=== PATIENT | female | born 1990 | race Native Hawaiian/Other Pacific Islander ===

== ENCOUNTER 2018-03-12 06:19 | Emergency (ER) | payer OTHER ==
[2018-03-12] MEDS ORDERED: Albuterol-Ipratrop 3 mg / 0.5 (3 ml) UD ONE (06:25)
[2018-03-12 06:30] VITALS: BP 108/69; PULSE 85; RESP 24; TEMP 98.2; O2SAT 94
[2018-03-12] MEDS ORDERED: Albuterol-Ipratrop 3 mg / 0.5 (3 ml) UD INH STA (06:31)
--- NOTE | 2018-03-12 07:16 | C.PDOC ---
History Of Present Illness 27 y/o female presents to ED with c/o asthma exacerbation [employer], states "I knew I needed a nebulizer treatment' and reports she used x1 inhaler at home with minimal improvement. Patient states symptoms are usually associated with exercise and triggered with weather change. Patient is speaking in full sentences and denies fever, chills, chest pain, nausea, vomiting or any other complaints at this time. Time Seen by Provider: 03/12/18 07:09 Chief Complaint (Nursing): Respiratory Distress History Per: Patient History/Exam Limitations: no limitations Onset/Duration Of Symptoms: Hrs Current Symptoms Are (Timing): Still Present Associated Symptoms: Cough. denies: Fever, Chest Pain Past Medical History Reviewed: Historical Data, Nursing Documentation, Vital Signs Vital Signs: Last Vital Signs Temp 98.2 F 03/12/18 06:28 Pulse 85 03/12/18 06:28 Resp 24 03/12/18 06:33 BP 108/69 03/12/18 06:28 Pulse Ox 94 L 03/12/18 06:28 - Medical History PMH: No Chronic Diseases Surgical History: No Surg Hx Family History: States: No Known Family Hx - Social History Hx Alcohol Use: No Hx Substance Use: No - Immunization History Hx Tetanus Toxoid Vaccination: No Hx Influenza Vaccination: No Hx Pneumococcal Vaccination: No Review Of Systems Constitutional: Negative for: Fever, Chills Cardiovascular: Negative for: Chest Pain Respiratory: Positive for: Cough, Shortness of Breath, Wheezing Gastrointestinal: Negative for: Nausea, Vomiting, Abdominal Pain Skin: Negative for: Rash Physical Exam - Physical Exam Appears: Non-toxic, No Acute Distress Skin: Warm, Dry, No Rash Head: Atraumatic, Normacephalic Eye(s): bilateral: Normal Inspection Oral Mucosa: Moist Neck: Supple Chest: Symmetrical Cardiovascular: Rhythm Regular Respiratory: Normal Breath Sounds, No Accessory Muscle Use, No Rales, No Rhonchi, No Wheezing Gastrointestinal/Abdominal: Soft, No Tenderness, No Guarding, No Rebound Extremity: Normal ROM, No Pedal Edema, Capillary Refill (<2 seconds) Neurological/Psych: Oriented x3, Normal Speech (Speaking in full sentences) Additional Physical Exam Comments: Patient examined s/p x1 neb treatment ED Course And Treatment O2 Sat by Pulse Oximetry: 94 Medical Decision Making Medical Decision Making: Patient does not wish additional neb treatments after receiving x1 neb treatment, does not want prednisone and is requesting to be discharge home. Disposition Counseled Patient/Family Regarding: Diagnosis, Need For Followup - Disposition Referrals: Bella Brewster MD [Primary Care Provider] - Disposition: HOME/ ROUTINE Disposition Time: 07:19 Condition: IMPROVED Instructions: Asthma, Adult (DC) Forms: [employer] (German) - Clinical Impression Clinical Impression: Exacerbation of asthma - Scribe Statement The provider has reviewed the documentation as recorded by the Jaymeibivy Ledezma All medical record entries made by the Jaymeibivy were at my direction and personally dictated by me. I have reviewed the chart and agree that the record accurately reflects my personal performance of the history, physical exam, medical decision making, and the department course for this patient. I have also personally directed, reviewed, and agree with the discharge instructions and disposition.
== END 2018-03-12 07:29 | disposition home or self-care (01) ==
LOC: SUPCPDRO 06:19 → C.ER 06:19
DX: J45.901 Unspecified asthma with (acute) exacerbation (principal)